=== PATIENT | female | born 1965 | race Caucasian/White ===

== ENCOUNTER 2016-10-22 09:06 | Emergency (ER) | payer OTHER ==
--- NOTE | 2016-10-22 09:59 | ERRECORD ---
[facility] EMERGENCY RECORD HPI TOOTHACHE (09:26 BPIC) CHIEF COMPLAINT: Patient presents for evaluation of toothache. HISTORIAN: History provided by patient. LOCATION: Symptoms are localized, most severe to Lower teeth on the left., now swelling to the lower left jaw. QUALITY: Pain is dull in nature. SEVERITY: Maximum severity of symptoms severe, Currently symptoms are severe. TIME COURSE: Gradual onset of symptoms, Sx have been much worse in the past few days. ASSOCIATED WITH: Associated with facial pain, No associated facial swelling, No associated fever, No associated trauma. EXACERBATED BY: Patient's condition exacerbated by chewing. RELIEVED BY: Patient's condition relieved by nothing. ROS (09:26 BPIC) CONSTITUTIONAL: Negative constitutional review of systems. EYES: Negative eye review of systems. ENT: Negative ears, nose, throat review of systems. CARDIOVASCULAR: Negative cardiovascular review of systems. RESPIRATORY: Negative respiratory review of systems. GI: Negative gastrointestinal review of systems. MUSCULOSKELETAL: Negative musculoskeletal review of systems. SKIN: Negative skin review of systems. PSYCHIATRIC: Negative psychiatric review of systems. NOTES: All other ROS is negative except as listed in HPI. PAST MEDICAL HISTORY MEDICAL HISTORY: Flu vaccine up to date, Tetanus immunization up to date, Pneumococcal vaccine not up to date, Past medical history includes pulmonary disease, chronic obstructive pulmonary disease, ALSO HAS DIAPHRAGMATIC HERNIA. (09:15 MSPE) FEMALE SURGICAL HISTORY: Surgical history of section, RIGHT FOOT SURGERY. (09:15 MSPE) PSYCHIATRIC HISTORY: Psychiatric history includes, anxiety, bipolar disorder. (09:15 MSPE) SOCIAL HISTORY: Patient denies alcohol use, Patient currently uses drugs, abuses marijuana, Drug history notes: Sts uses marijuana "sometimes", Patient currently uses tobacco, smokes cigarettes, Patient smokes 1 pack per day. (09:15 MSPE) NOTES: I have reviewed and agree with the PMH/PSxH/FamHx/SocHx obtained by the nurse. (09:26 BPIC) KNOWN ALLERGIES Bees & Wasps (Unconfirmed) No Known Drug Allergies CURRENT MEDICATIONS (09:13 MSPE) &a-1R&a+25V*p+0X*i6362P*c152B*c15G*c2P*p-0X&a-25V&a+1RName: Mari Mccrary : F51 MedRec: [id number] AcctNum: [id number] Prepared: ThuOct 22, 2016 10:50 by Interface Page 1 of 3 pMD [facility] EMERGENCY RECORD LORazepam: TABLET : Strength - 1 mg : ORAL Patient Dose: 5 mg Oral 2 times a day. risperiDONE: TABLET : Strength - 1 mg : ORAL Patient Dose: 5 mg Oral 2 times a day. Combivent: AEROSOL WITH ADAPTER (GRAM) : Strength - 18 mcg-103 mcg (90 mcg)/actuation : INHALATION Patient Dose: Inhaler As Needed. VITAL SIGNS VITAL SIGNS: BP: 180/85, Pulse: 71, Resp: 18, Temp: 97.3 (Oral), Pain: 9, O2 sat: 100 on Room Air, Time: 10/22/2016 09:11. (09:11 MSPE) BP: 139/81, Time: 10/22/2016 09:33. (09:33 MSPE) PHYSICAL EXAM (09:26 BPIC) CONSTITUTIONAL: Vital signs reviewed, Patient afebrile, Pulse normal, Blood pressure normal, Respiratory rate normal, Patient appears non toxic, Patient appears pain free, Patient alert and oriented to person, place and time. HEAD: Head exam included findings of head atraumatic, normocephalic. EYES: Eye exam included findings of eyelids normal to inspection, Pupils equally round and reactive to light, Extraocular muscles intact. ENT: ENT exam normal, Nose exam normal, Pharynx exam normal, Uvula exam normal, Teeth with, dental caries, abscess, left lower abscess. NECK: Neck exam included findings of normal range of motion, Trachea midline. RESPIRATORY CHEST: Respiratory exam included findings of no respiratory distress, Breath sounds clear, Chest exam included findings of chest movement symmetrical, Chest expansion equal. CARDIOVASCULAR: Cardiovascular exam included findings of heart rate regular rate and rhythm, Heart sounds normal. NEURO: Neuro exam findings include patient oriented to person, place and time, Speech normal. PSYCHIATRIC: Psychiatric exam included findings of patient oriented to person place and time, Normal affect. DOCTOR NOTES (09:26 BPIC) TEXT: Pt with dental caries and evidence of poor oral care and left lower abscess. I recommended going straight to an oral surgeon but the patient has other family obligations today. abx and fu information provided. Explained the importance of preventative dental care and the need for definitive treatment with a dentist. PROBLEM LIST No recorded problems &a-1R&a+25V*p+0X*n5103T*c152B*c15G*c2P*p-0X&a-25V&a+1RName: Mari Mccrary : F51 MedRec: [id number] AcctNum: [id number] Prepared: ThuOct 22, 2016 10:50 by Interface Page 2 of 3 pMD [facility] EMERGENCY RECORD DIAGNOSIS (09:29 BPIC) FINAL: PRIMARY: left lower dental abscess. PRESCRIPTION (09:30 BPIC) PC Pen V K: TABLET : 500 mg : ORAL : Quantity: 500 Unit: mg Route: ORAL Schedule: 2 times a day Dispense: 20 Unit: tab(s) May substitute. Refills: No Refills . NOTES: No Refills. DISPOSITION PATIENT: Disposition Type: Discharge, Disposition: *Discharge Home, Condition: Good. (09:29 BPIC) Patient left the department. (09:39 MSPE) Raza: BPIC=MD Dalia, Franklin MSPE=MICAELA Vincent, Angelica &a-1R&a+25V*p+0X*h0113O*c152B*c15G*c2P*p-0X&a-25V&a+1RName: Mari Mccrary : F51 MedRec: [id number] AcctNum: [id number] Prepared: ThuOct 22, 2016 10:50 by Interface Page 3 of 3 pMD MTDD
--- NOTE | 2016-10-22 10:04 | PICIS ---
[facility] EMERGENCY RECORD TRIAGE (ThuOct 22, 2016 09:12 MSPE) TRIAGE NOTES: pain/swelling to left jaw; sts "tooth is abscessed". (ThuOct 22, 2016 09:12 MSPE) PATIENT: NAME: Mari Mccrary, AGE: 51, GENDER: female, : [id number], TIME OF GREET: ThuOct 22, 2016 09:07, PREFERRED LANGUAGE: Belarusian, ETHNICITY: Not or , ECODE BILLING MAP: [facility], SSN: [id number], Zip Code: [address], KG WEIGHT: 54.43 (est.), PHONE: , , , PERSON ID: [id number], PCP: Denilson Wilburn /Carl. (ThuOct 22, 2016 09:12 MSPE) COMPLAINT: DENTAL PAIN. (ThuOct 22, 2016 09:12 MSPE) ADMISSION: URGENCY: 5 Fast Track, ADMISSION SOURCE: Home, TRANSPORT: CAR, BED: ER -04. (ThuOct 22, 2016 09:12 MSPE) LMP: LMP: Menopause. (09:15 MSPE) TREATMENTS IN PROGRESS: Treatments given Prehospital: none today. (09:15 MSPE) PROVIDERS: TRIAGE NURSE: Angelica Vincent RN. (ThuOct 22, 2016 09:12 MSPE) VITAL SIGNS: BP 180/85, Pulse 71, Resp 18, Temp 97.3, (Oral), Pain 9, O2 Sat 100, on Room Air, Time 10/22/2016 09:11. (09:11 MSPE) PREVIOUS VISIT ALLERGIES: Bees . (ThuOct 22, 2016 09:12 MSPE) Bees . (09:15 MSPE) KNOWN ALLERGIES Bees & Wasps (Unconfirmed) No Known Drug Allergies CURRENT MEDICATIONS (09:13 MSPE) LORazepam: TABLET : Strength - 1 mg : ORAL Patient Dose: 5 mg Oral 2 times a day. risperiDONE: TABLET : Strength - 1 mg : ORAL Patient Dose: 5 mg Oral 2 times a day. Combivent: AEROSOL WITH ADAPTER (GRAM) : Strength - 18 mcg-103 mcg (90 mcg)/actuation : INHALATION Patient Dose: Inhaler As Needed. VITAL SIGNS VITAL SIGNS: BP: 180/85, Pulse: 71, Resp: 18, Temp: 97.3 (Oral), Pain: 9, O2 sat: 100 on Room Air, Time: 10/22/2016 09:11. (09:11 MSPE) BP: 139/81, Time: 10/22/2016 09:33. (09:33 MSPE) NURSING ASSESSMENT: DENTAL (09:15 MSPE) CONSTITUTIONAL: Patient arrives ambulatory, Gait steady, History obtained from patient, Patient appears, anxious, Patient cooperative, Patient alert, Oriented to person, place and time, Skin warm, Skin dry. PAIN: aching pain, to left lower back tooth (teeth), Onset of pain 10/20/2016. &a-1R&a+25V*p+0X*c3725J*c152B*c15G*c2P*p-0X&a-25V&a+1RName: Mari Mccrary : F51 MedRec: [id number] AcctNum: [id number] Prepared: ThuOct 22, 2016 10:56 by Interface Page 1 of 4 pMD [facility] EMERGENCY RECORD DENTAL: no associated malocclusion of jaw, no associated bleeding, Associated with, swelling to the left jaw. NURSING PROCEDURE: DISCHARGE NOTE (09:35 MSPE) DISCHARGE: Patient discharged to home, ambulating without assistance, accompanied by //partner, Summary of Care printed/ provided, Discharge instructions given to patient, Simple or moderate discharge teaching performed, Prescriptions given and instructions on side effects given, Above person(s) verbalized understanding of discharge instructions and follow-up care, Patient treated and evaluated by physician. BELONGINGS: Belongings remain with patient. HPI TOOTHACHE (09:26 BPIC) CHIEF COMPLAINT: Patient presents for evaluation of toothache. HISTORIAN: History provided by patient. LOCATION: Symptoms are localized, most severe to Lower teeth on the left., now swelling to the lower left jaw. QUALITY: Pain is dull in nature. SEVERITY: Maximum severity of symptoms severe, Currently symptoms are severe. TIME COURSE: Gradual onset of symptoms, Sx have been much worse in the past few days. ASSOCIATED WITH: Associated with facial pain, No associated facial swelling, No associated fever, No associated trauma. EXACERBATED BY: Patient's condition exacerbated by chewing. RELIEVED BY: Patient's condition relieved by nothing. ROS (09:26 BPIC) CONSTITUTIONAL: Negative constitutional review of systems. EYES: Negative eye review of systems. ENT: Negative ears, nose, throat review of systems. CARDIOVASCULAR: Negative cardiovascular review of systems. RESPIRATORY: Negative respiratory review of systems. GI: Negative gastrointestinal review of systems. MUSCULOSKELETAL: Negative musculoskeletal review of systems. SKIN: Negative skin review of systems. PSYCHIATRIC: Negative psychiatric review of systems. NOTES: All other ROS is negative except as listed in HPI. PAST MEDICAL HISTORY MEDICAL HISTORY: Flu vaccine up to date, Tetanus immunization up to date, Pneumococcal vaccine not up to date, Past medical history includes pulmonary disease, chronic obstructive pulmonary disease, ALSO HAS DIAPHRAGMATIC HERNIA. (09:15 MSPE) FEMALE SURGICAL HISTORY: Surgical history of section, RIGHT FOOT SURGERY. (09:15 MSPE) PSYCHIATRIC HISTORY: Psychiatric history includes, anxiety, &a-1R&a+25V*p+0X*g7981Z*c152B*c15G*c2P*p-0X&a-25V&a+1RName: Mari Mccrary : F51 MedRec: [id number] AcctNum: [id number] Prepared: ThuOct 22, 2016 10:56 by Interface Page 2 of 4 pMD [facility] EMERGENCY RECORD bipolar disorder. (09:15 MSPE) SOCIAL HISTORY: Patient denies alcohol use, Patient currently uses drugs, abuses marijuana, Drug history notes: Sts uses marijuana "sometimes", Patient currently uses tobacco, smokes cigarettes, Patient smokes 1 pack per day. (09:15 MSPE) NOTES: I have reviewed and agree with the PMH/PSxH/FamHx/SocHx obtained by the nurse. (09:26 BPIC) PHYSICAL EXAM (09:26 BPIC) CONSTITUTIONAL: Vital signs reviewed, Patient afebrile, Pulse normal, Blood pressure normal, Respiratory rate normal, Patient appears non toxic, Patient appears pain free, Patient alert and oriented to person, place and time. HEAD: Head exam included findings of head atraumatic, normocephalic. EYES: Eye exam included findings of eyelids normal to inspection, Pupils equally round and reactive to light, Extraocular muscles intact. ENT: ENT exam normal, Nose exam normal, Pharynx exam normal, Uvula exam normal, Teeth with, dental caries, abscess, left lower abscess. NECK: Neck exam included findings of normal range of motion, Trachea midline. RESPIRATORY CHEST: Respiratory exam included findings of no respiratory distress, Breath sounds clear, Chest exam included findings of chest movement symmetrical, Chest expansion equal. CARDIOVASCULAR: Cardiovascular exam included findings of heart rate regular rate and rhythm, Heart sounds normal. NEURO: Neuro exam findings include patient oriented to person, place and time, Speech normal. PSYCHIATRIC: Psychiatric exam included findings of patient oriented to person place and time, Normal affect. EVENTS TRANSFER: Triage to Emergency Emergency Room -04. (ThuOct 22, 2016 09:12 MSPE) Removed from Emergency Emergency Room -04. (09:39 MSPE) DOCTOR NOTES (09:26 BPIC) TEXT: Pt with dental caries and evidence of poor oral care and left lower abscess. I recommended going straight to an oral surgeon but the patient has other family obligations today. abx and fu information provided. Explained the importance of preventative dental care and the need for definitive treatment with a dentist. PROBLEM LIST No recorded problems DIAGNOSIS (09:29 BPIC) &a-1R&a+25V*p+0X*o8247K*c152B*c15G*c2P*p-0X&a-25V&a+1RName: Mari Mccrary : F51 MedRec: [id number] AcctNum: [id number] Prepared: ThuOct 22, 2016 10:56 by Interface Page 3 of 4 D [facility] EMERGENCY RECORD FINAL: PRIMARY: left lower dental abscess. DISPOSITION PATIENT: Disposition Type: Discharge, Disposition: *Discharge Home, Condition: Good. (09:29 BPIC) Patient left the department. (09:39 MSPE) INSTRUCTION (09:30 BPIC) DISCHARGE: ABSCESS DENTAL. FOLLOWUP: [facility], /[facility], [address] [address], , BRII Osorio, Griffin, early intervention specialist, [facility] [facility] [address], , Judy KAPLANS., WERNER, Dentistry, [address] [place] [address] [place] [address], [phone]. SPECIAL: Thank you for choosing [facility] Emergency Department for your care today! Please follow up with an oral surgeon or dentist regarding your dental abscess. Return to the emergency department with any other worsening or emergent symptoms. God bless you!. PRESCRIPTION (09:30 BPIC) PC Pen V K: TABLET : 500 mg : ORAL : Quantity: 500 Unit: mg Route: ORAL Schedule: 2 times a day Dispense: 20 Unit: tab(s) May substitute. Refills: No Refills . NOTES: No Refills. IMAGING *DISCHARGE INSTRUCTIONS RECEIPT: Image captured from scanner. (09:38 MSPE) Page 2 added. Image captured from scanner. (09:38 MSPE) *SUPPLY CHARGE SHEET: Image captured from scanner. (09:39 MSPE) ADMIN (10:44 BPIC) DIGITAL SIGNATURE: MD Gómez Bryan. Raza: BPIC=MD Gómez Bryan MSPE=MICAELA Vinecnt, Angelica &a-1R&a+25V*p+0X*v8587T*c152B*c15G*c2P*p-0X&a-25V&a+1RName: Mari Mccrary : F51 MedRec: [id number] AcctNum: [id number] Prepared: ThuOct 22, 2016 10:56 by Interface Page 4 of 4 pMD MTDD
== END 2016-10-22 09:35 | disposition home or self-care (01) ==
LOC: NAV ERS 09:06
DX: K04.7 Periapical abscess without sinus (principal); J44.9 Chronic obstructive pulmonary disease, unspecified; F31.9 Bipolar disorder, unspecified; F17.210 Nicotine dependence, cigarettes, uncomplicated
CPT/HCPCS: 99282

== ENCOUNTER 2017-03-25 07:22 | Emergency (ER) | payer OTHER ==
--- NOTE | 2017-03-25 09:06 | RAD ---
RIGHT SHOULDER 3 VIEWS: HISTORY: A 51-year-old female with right shoulder pain. COMPARISON: 08/09/13. FINDINGS/IMPRESSION: No fracture, dislocation, or other significant acute osseous abnormality. Stable from prior study. POS: [facility]
--- NOTE | 2017-03-25 09:46 | RAD ---
CERVICAL SPINE THREE VIEWS: History: 51-year-old female with neck pain after a fall four days ago. FINDINGS: Extensive posterior disc osteophytosis at C5-6 which could conceivably result in significant spinal canal stenosis. There are some generalized uncal vertebral and hypertrophic changes and facet arthro sis. The tip of the odontoid and C1 are obscured on the AP open mouth view. No prevertebral soft tis kitty swelling. IMPRESSION: Severe disc osteophytosis at C5-6 posteriorly which could result in significant associated stenosis. Generalized uncal vertebral and hypertrophic changes and facet arthrosis. No evidence of fracture o r dislocation along the visualized cervical spine. Given potential radiculopathy, follow up MRI is r ecommended. POS: [facility]
== END 2017-03-25 08:25 | disposition home or self-care (01) ==
LOC: NAV ERS 07:22
DX: S16.1XXA Strain of muscle, fascia and tendon at neck level, initial encounter (principal); M47.812 Spondylosis without myelopathy or radiculopathy, cervical region; M25.511 Pain in right shoulder; G89.29 Other chronic pain; J44.9 Chronic obstructive pulmonary disease, unspecified; F31.9 Bipolar disorder, unspecified; F41.9 Anxiety disorder, unspecified; F17.210 Nicotine dependence, cigarettes, uncomplicated; Z79.899 Other long term (current) drug therapy; W18.30XA Fall on same level, unspecified, initial encounter
CPT/HCPCS: 72040

== ENCOUNTER 2017-08-15 11:13 | Emergency (ER) | payer OTHER ==
[2017-08-15] MEDS ORDERED: Ketorolac Tromethamine 60 MG/2 ML VIAL ONE (11:41)
[2017-08-15] MEDS ORDERED: Ondansetron ODT 4 MG TAB ONE (12:30)
--- NOTE | 2017-08-15 12:31 | CT ---
CT CERVICAL SPINE WITHOUT CONTRAST ENHANCEMENT: Date: 08/15/17 HISTORY: Fell from a ladder with right-sided neck pain. FINDINGS: The vertebral bodies are normal in height. There is degenerative disc narrowing at C5-6 with posterio r osteophyte change. Changes are causing some moderate left-sided foraminal narrowing and some mild r ight-sided foraminal stenosis, and a moderate degree of canal stenosis. The facets appear to be in no rmal alignment. There is no CT evidence of fracture. Lung apices show marked emphysematous change. IMPRESSION: 1. No CT evidence of fracture. 2. Degenerative changes at the C5-6 level with moderate canal stenosis and marked left-sided foramin al narrowing. POS: [facility]
--- NOTE | 2017-08-15 13:31 | CT ---
CT CHEST WITHOUT CONTRAST: Date: 08/15/17 PROVIDED CLINICAL HISTORY: Back pain and chest pain status post injury. FINDINGS: Comparison is made with the chest CT performed 06/17/13. The heart, pericardium, and great vessels are suboptimally evaluated without IV contrast but demonstr ate an unremarkable unenhanced CT appearance. There are conspicuous emphysematous changes involving t he lung apices again noted. There is no pleural fluid or pneumothorax apparent. The lungs are free of significant opacity. Diaphragmatic hernia containing a portion of right liver is redemonstrated, sta ble. The osseous structures demonstrate no evidence for an acute abnormality. IMPRESSION: No evidence for an acute process. POS: [facility]
--- NOTE | 2017-08-15 13:59 | CT ---
CT BRAIN: Date: 08/15/17 PROVIDED CLINICAL HISTORY: Headache. FINDINGS: The ventricular system appears normal in size and morphology. There is no evidence for intracranial h emorrhage or mass effect. The extracranial soft tissues and osseous structures demonstrate an unremar kable CT appearance. IMPRESSION: No evidence for intracranial hemorrhage or skull fracture. POS: [facility]
--- NOTE | 2017-08-15 14:01 | CT ---
CT LUMBAR SPINE: Date: 08/15/17 PROVIDED CLINICAL HISTORY: Back pain status post injury. FINDINGS: Lumbar alignment appears normal. Vertebral body heights appear preserved. There is no evidence for fr acture. Lumbar disc degenerative changes are seen without evidence for significant central canal or f oraminal narrowing. IMPRESSION: No evidence for fracture. POS: [facility]
== END 2017-08-15 12:49 | disposition home or self-care (01) ==
LOC: NAV ERS 11:13
DX: S16.1XXA Strain of muscle, fascia and tendon at neck level, initial encounter (principal); S33.5XXA Sprain of ligaments of lumbar spine, initial encounter; S20.211A Contusion of right front wall of thorax, initial encounter; J44.9 Chronic obstructive pulmonary disease, unspecified; F41.9 Anxiety disorder, unspecified; F31.9 Bipolar disorder, unspecified; F17.210 Nicotine dependence, cigarettes, uncomplicated; Z79.899 Other long term (current) drug therapy; W11.XXXA Fall on and from ladder, initial encounter
CPT/HCPCS: 70450; 71250; 72125; 72131; 96372; J1885; Q0162

== ENCOUNTER 2018-07-19 16:08 | Emergency (ER) | payer OTHER ==
[2018-07-19 16:54] LABS: #Basophils 0.1 thou/uL (0.0-0.2); #Lymphocytes 2.6 thou/uL (1.20-3.40); #Monocytes 0.2 thou/uL (0.11-0.59); #Neutrophils 4.7 thou/uL (1.40-6.50); %Eosinophils 0.6 % (0.0-10.0); %Lymphocytes 34.4 % (21.0-51.0); %Monocytes 3.1 % (0.0-10.0); %Neutrophils 60.9 % (42.0-75.0); Hemoglobin 13.9 g/dL (12.0-16.0); Mean Corpuscular HGB CONC 31.8 g/dL (32.0-36.0); Mean Corpuscular Hemoglobin 29.3 pg (27.0-31.0); Mean Corpuscular Volume 91.9 fL (78.0-98.0); Mean Platelet Volume 6.4 fL (7.4-10.4); Platelet Count 338 thou/uL (130-400); RBC Distribution Width 13.1 % (11.5-14.5); Red Blood Cell (RBC) Count 4.77 mill/uL (4.20-5.40); White Blood Cell (WBC) Count 7.7 thou/uL (4.8-10.8)
[2018-07-19] MEDS ORDERED: cloNIDine 0.1 MG TAB ONE (17:07)
[2018-07-19] MEDS ORDERED: Ondansetron HCl/PF 4 MG/2 ML Vial ONE (17:08)
[2018-07-19 17:17] LABS: ALT (SGPT) 26 U/L (8-55); AST (SGOT) 36 U/L (5-34); Albumin 4.5 g/dL (3.5-5.0); Alkaline Phosphatase 61 U/L (40-150); Anion Gap 14 mmol/L (10-20); BUN (Urea Nitrogen) 13 mg/dL (9.8-20.1); Bilirubin, Total 0.3 mg/dL (0.2-1.2); CK (CPK) 1334 U/L (29-168); Calc. Creatinine Clearance 0 mL/min (70-130); Calcium 10.1 mg/dL (7.8-10.44); Carbon Dioxide 25 mmol/L (22-29); Chloride 108 mmol/L (98-107); Estimated GFR-MDRD 58; Globulin 2.7 g/dL (2.4-3.5); Glucose 86 mg/dL (70-105); Lipase 56 U/L (8-78); Potassium 3.7 mmol/L (3.5-5.1); Protein, Total 7.2 g/dL (6.0-8.3); Sodium 143 mmol/L (136-145); Troponin I 0.012 ng/mL (< 0.028)
[2018-07-19 17:25] LABS: Bilirubin Negative (Negative); Blood, Urine Negative (Negative); Clarity Clear (Clear); Glucose, Urine (Dipstick) Negative (Negative); Leukocyte Negative (Negative); Nitrite Negative (Negative); Protein, Urine (Dipstick) Negative (Neg-Trace); Specific Gravity, Urine 1.015 (1.005-1.030); Urobilinogen 0.2 mg/dL (0.2-1.0)
[2018-07-19] MEDS ORDERED: Sodium Chloride 0.9% 1,000 ML ONE (17:28)
[2018-07-19 17:41] LABS: CKMB 16.6 ng/mL (0-6.6)
[2018-07-19 17:42] LABS: Amphetamine Not Detected (NotDetected); Barbiturates Screen Not Detected (NotDetected); Benzodiazepine Screen Not Detected (NotDetected); Cocaine Metabolite Screen Not Detected (NotDetected); Medtox Control Line Valid? VALID (VALID); Methadone Not Detected (NotDetected); Methamphetamine Not Detected (NotDetected); Opiate Screen Not Detected (NotDetected); Oxycodone Screen Not Detected (NotDetected); Phencyclidine (PCP) Not Detected (NotDetected); THC/Cannabinoid Screen Detected (NotDetected); Tricyclic Screen Not Detected (NotDetected)
[2018-07-19] MEDS ORDERED: Amlodipine 5 MG TAB ONE (18:35)
--- NOTE | 2018-07-19 18:36 | RAD ---
PORTABLE AP CHEST X-RAY: 07/19/2018 HISTORY: Intermittent chills with headache for the past three days. COMPARISON: 01/21/2013 FINDINGS: The cardiac silhouette and pulmonary vasculature are within normal limits. The lungs are clear. 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 This is also stable in appearance from a prior chest x-ray . There has been no other interval change compared to the prior exam. IMPRESSION: No acute cardiopulmonary process. POS: [facility]
== END 2018-07-19 18:44 | disposition home or self-care (01) ==
LOC: NAV ERS 16:08
DX: I10 Essential (primary) hypertension (principal); E86.0 Dehydration; M19.90 Unspecified osteoarthritis, unspecified site; J44.9 Chronic obstructive pulmonary disease, unspecified; F41.9 Anxiety disorder, unspecified; F31.9 Bipolar disorder, unspecified; F17.210 Nicotine dependence, cigarettes, uncomplicated; Z79.899 Other long term (current) drug therapy
CPT/HCPCS: 71045; 80053; 80306; 81003; 82553; 83690; 83880; 84484; 85025; 93005; 96361; 96374; J2405; J7050

== ENCOUNTER 2021-06-25 10:48 | Outpatient (CLI) | payer OTHER | END 2021-06-25 10:49 | disposition home or self-care (01) | LOC: NAV RAD 10:48 | PROVIDERS: ATTEND Nurse Practitioner Family | DX: M79.642 Pain in left hand (principal); M25.411 Effusion, right shoulder ==

== ENCOUNTER 2022-08-02 19:52 | Emergency (ER) | payer MEDICAID, OTHER ==
[2022-08-02] MEDS ORDERED: traMADol HCl 50 MG TAB ONE (20:55)
== END 2022-08-02 21:20 | disposition home or self-care (01) ==
LOC: NAV ERS 19:52
DX: S93.602A Unspecified sprain of left foot, initial encounter (principal); J44.9 Chronic obstructive pulmonary disease, unspecified; F17.210 Nicotine dependence, cigarettes, uncomplicated; X58.XXXA Exposure to other specified factors, initial encounter; Z79.899 Other long term (current) drug therapy

== ENCOUNTER 2023-10-27 10:04 | Emergency (ER) | payer OTHER | END 2023-10-27 11:30 | disposition home or self-care (01) | LOC: NAV ERS 10:04 | DX: U07.1 COVID-19 (principal); R04.2 Hemoptysis; F17.210 Nicotine dependence, cigarettes, uncomplicated; I10 Essential (primary) hypertension; J44.9 Chronic obstructive pulmonary disease, unspecified | CPT/HCPCS: 71046 ==